=== PATIENT | female | born 1960 | race Caucasian/White ===

== ENCOUNTER 2017-08-18 05:40 | Observation (INO) | payer OTHER ==
[~2017-08-18] VITALS: Ht 167.6 cm; Wt 110.5 kg
[~2017-08-18 05:40] MED LIST: FERR325T18 PO; FOLI1TAB6 PO; MEDR10TA7 PO; METH2.5T PO; TRICCAP PO
[2017-08-18] MEDS ORDERED: HEPARIN SODIUM - SQ 10,000 UNITS/ML VIAL SQ PRN (06:00)
[2017-08-18] MEDS ORDERED: CHLORHEXIDINE GLUCONATE 2 % 1 PACK (2 CLOTHS) TOPICAL PRN (06:15)
[2017-08-18] MEDS ORDERED: SODIUM CHLORID 0.9% 500 ML IV PRN (06:15)
[2017-08-18] MEDS ORDERED: METOPROLOL TARTRATE 25 MG TAB PO PRN (06:15)
[2017-08-18] MEDS ORDERED: LACTATED RINGER'S 1000 ML IV PRN (06:15)
[2017-08-18] MEDS ORDERED: POVIDONE IODINE 5% (ANTISEPSIS KIT) 4 APPLICATIONS EACH NARE PRN (06:15)
[2017-08-18] MEDS ORDERED: SODIUM CHLORIDE FLUSH PRN IV FLUSH (06:15)
[2017-08-18] MEDS ORDERED: MULTTAB67 PO (06:34)
[2017-08-18] MEDS: ceFAZolin 2 GM/DEX PREMIX 50 ML IV SCH ×2 (07:02→08:00)
[2017-08-18] MEDS ORDERED: ACETAMINOPHEN 1000 MG/100 ML 100 ML IV ONE (07:07)
[2017-08-18] MEDS ORDERED: LIDOCAINE 1%/EPINEPHrine 1:100,000 SOLN 30 ML VIAL ONE (07:12)
[2017-08-18] MEDS: SODIUM CHLORIDE FLUSH BID IV FLUSH SCH ×2 (09:00→20:30)
[2017-08-18] MEDS ORDERED: ceFAZolin INJ 1,000 MG VIAL IV ONE (10:14)
[2017-08-18] MEDS ORDERED: VECURONIUM BROMIDE 20 MG VIAL IV ONE (10:14)
[2017-08-18] MEDS ORDERED: ONDANSETRON HCL 4 MG/2 ML VIAL IV ONE (10:14)
[2017-08-18] MEDS ORDERED: DEXAMETHASONE SOD PHOS 4 MG/ML VIAL IV ONE (10:14)
[2017-08-18] MEDS ORDERED: LIDOCAINE HCL 1% PF 5 ML SYRINGE OTHER ONE (10:14)
[2017-08-18] MEDS ORDERED: ROCURONIUM INJ 50 MG/5 ML SYRINGE IV PUSH ONE (10:14)
[2017-08-18] MEDS ORDERED: PROPOFOL 200 MG/20 ML AMP IV ONE (10:14)
[2017-08-18] MEDS ORDERED: LIDOCAINE 1%/EPINEPHrine 1:100,000 SOLN 50 ML VIAL INFIL ONE (10:16)
[2017-08-18] MEDS ORDERED: SUGAMMADEX SODIUM 200 MG/2 ML VIAL IV PUSH ONE (10:33)
[2017-08-18] MEDS ORDERED: oxyCODONE/ACETAMINOPHEN 5 MG/325 MG TAB PO PRN ×2 (12:00)
[2017-08-18] MEDS ORDERED: SODIUM CHLORIDE 0.9% FLUSH 10 ML FLUSH IV FLUSH PRN (12:00)
[2017-08-18] MEDS ORDERED: LORazepam 0.5 MG TAB PO PRN (12:00)
[2017-08-18] MEDS ORDERED: diphenhydrAMINE HCL 25 MG CAP PO PRN (12:00)
[2017-08-18] MEDS ORDERED: ONDANSETRON HCL 4 MG/2 ML VIAL IVP PRN (12:00)
[2017-08-18] MEDS ORDERED: DO NOT ADM ANY ANTICOAGULANT DRUGS PRN (12:11)
[2017-08-18] MEDS ORDERED: MIDAZOLAM HCL 2 MG/2 ML VIAL ONE (12:22)
[2017-08-18] MEDS ORDERED: MORPHINE SULFATE 4 MG/ML INJ ONE (12:22)
[2017-08-18] MEDS: KETOROLAC TROMETHAMINE 30 MG/ML (IVP) VIAL IVP SCH ×2 (12:52→20:30)
[2017-08-18] MEDS: D5-1/2 NS + KCL 20 MEQ INJ 1,000 ML IV SCH ×2 (12:52→23:11)
--- NOTE | 2017-08-18 15:23 | PD.ONC.PN ---
Subjective Subjective Remarks Post-op Patient is seen in PACU she has no complaints pain controlled awaiting bed placement drinking clear fluids Objective Data Date Time Temp Pulse Resp B/P (MAP) Pulse Ox O2 Delivery O2 Flow Rate FiO2 08/18/17 12:12 97.7 95 18 147/77 (100) 99 Nasal Cannula 2 08/18/17 06:15 98.3 96 16 131/74 (93) 96 08/18/17 08/18/17 08/18/17 07:00 15:00 23:00 Intake Total 2500 ml Output Total 500 ml Balance 2000 ml Administered Medications Medications (Trade) Dose Ordered Sig/Cherri Route PRN Reason Start Time Stop Time Status Last Admin Dose Admin Heparin Sodium (Porcine) (Heparin Inj) 5,000 units LEAD MINER PRN SQ PRE-OP LEAD MINER TO OR 08/18/17 06:00 08/18/17 22:00 08/18/17 06:21 Cefazolin Sodium/ Dextrose 50 ml @ 100 mls/hr LEAD MINER IV 08/18/17 06:15 08/21/17 06:14 08/18/17 08:00 Lactated Ringer's 1,000 ml @ 30 mls/hr Q24H PRN IV SEE LABEL COMMENTS 08/18/17 06:15 08/21/17 06:14 08/18/17 06:15 Povidone Iodine (Betadine 5% Antisepsis Kit) 1 applic LEAD MINER PRN EACH NARE SEE LABEL COMMENTS 08/18/17 06:15 08/21/17 06:14 08/18/17 06:30 Chlorhexidine Gluconate (Chlorhexidine 2% Cloth) 3 pack LEAD MINER PRN TOPICAL SEE LABEL COMMENTS 08/18/17 06:15 08/21/17 06:14 08/18/17 06:00 Potassium Chloride/Dextrose/ Sod Cl 1,000 ml @ 100 mls/hr Q10H IV 08/18/17 13:00 08/18/17 12:52 Ketorolac Tromethamine (Toradol Inj) 30 mg Q6H IVP 08/18/17 13:00 08/19/17 07:01 08/18/17 12:52 Objective Remarks GENERAL: Well-nourished, well-developed patient. SKIN: Warm and dry. HEAD: Normocephalic. EYES: No scleral icterus. No injection or drainage. CARDIOVASCULAR: Regular rate and rhythm without murmurs. RESPIRATORY: Breath sounds equal bilaterally. No accessory muscle use. GASTROINTESTINAL: Abdomen soft, SS are c/d/i EXTREMITIES:teds and scds MUSCULOSKELETAL: Adequate muscle tone. PSYCHIATRIC: Appropriate mood and affect; insight and judgment normal. Assessment/Plan Problem List: (1) Post-operative state ICD Codes: Z98.890 - Other specified postprocedural states Status: Acute Plan: s/p RA lap hyst with BSO post op orders in chart david to be removed in the morning ADAT OOB to chair Percocet and Toradol for pain IS to bedside anticipate discharge in next 24 hours Karuna Cason Aug 18, 2017 15:23
[2017-08-18] MEDS ORDERED: *ONDANSETRON 4 MG VIAL PERIprocedural Use ONLY ONE (17:58)
[2017-08-18 19:00] VITALS: BP 159/76; PULSE 75; TEMP 98.2; O2SAT 95
[2017-08-18 19:03] VITALS: BP 146/70; PULSE 73; RESP 16; O2SAT 97
[2017-08-18] MEDS ORDERED: SODIUM CHLORIDE 0.9% FLUSH 10 ML FLUSH IV FLUSH SCH (21:00)
[2017-08-19] VITALS: BP 140/77; PULSE 80; TEMP 98.1; O2SAT 97
[2017-08-19] MEDS: KETOROLAC TROMETHAMINE 30 MG/ML (IVP) VIAL IVP SCH ×2 (02:15→06:21)
[2017-08-19 05:06] LABS: AUTOMATED NEUTROPHIL # 9.5 TH/MM3 (1.8-7.7); BASOPHIL # 0.1 TH/MM3 (0-0.2); BASOPHIL % 0.4 % (0.0-2.0); EOSINOPHIL % 0.2 % (0.0-4.0); HEMATOCRIT 36.2 % (35.0-46.0); HEMOGLOBIN 11.8 GM/DL (11.6-15.3); LYMPH % 9.8 % (9.0-44.0); LYMPHOCYTE # 1.2 TH/MM3 (1.0-4.8); MEAN CELL VOLUME 84.2 FL (80.0-100.0); MEAN CORPUSCULAR HEMOGLOBIN 27.4 PG (27.0-34.0); MEAN CORPUSCULAR HGB CONC 32.5 % (32.0-36.0); MEAN PLATELET VOLUME 9.9 FL (7.0-11.0); MONO % 9.9 % (0.0-8.0); MONOCYTE # 1.2 TH/MM3 (0-0.9); NEUT % 79.7 % (16.0-70.0); PLATELET COUNT 338 TH/MM3 (150-450); RED CELL DISTRIBUTION WIDTH 16.3 % (11.6-17.2); WHITE BLOOD COUNT 11.9 TH/MM3 (4.0-11.0)
[2017-08-19 05:18] VITALS: BP 138/73; PULSE 76; TEMP 97.8; O2SAT 96
[2017-08-19 05:29] LABS: BICARBONATE 25.7 MEQ/L (21.0-32.0); CREATININE 0.75 MG/DL (0.50-1.00)
[2017-08-19 07:00] VITALS: BP 143/72; PULSE 75; PULSE 83; RESP 17; TEMP 98.2; O2SAT 96
[2017-08-19] MEDS ORDERED: OXYC1TAB63 PO (07:11)
--- NOTE | 2017-08-19 07:30 | MD ---
cc: Tere Morin MD, Carhine MD DATE OF DISCHARGE: PROCEDURE: Robotic-assisted laparoscopic hysterectomy, bilateral salpingo-oophorectomy, bilateral pelvic lymphadenectomy. DIAGNOSES: Endometrial cancer, enlarged uterus, postmenopausal bleeding. COURSE IN HOSPITAL: She did well in early postop period. She was hemodynamically stable, tolerating oral intake. Ins and outs 4781/2575. Labs this morning show an H and H of 11.8 and 36.2. Electrolytes: BUN and creatinine 8.75. PHYSICAL EXAMINATION: VITAL SIGNS: Afebrile, pulse 73-87, respirations 16-18, blood pressure 138-159/70-84, O2 saturations greater than or equal to 96%. GENERAL: Alert and oriented x 3. LUNGS: Clear. Mild basilar rales. CARDIOVASCULAR: Regular rate and rhythm. ABDOMEN: Clean and dry. Incisions without bleeding or discharge. Nontender. GYNECOLOGIC: No active bleeding. EXTREMITIES: Nontender. ASSESSMENT: Postoperative day #1, doing well in early postoperative period. Findings, preliminary pathology, steps taken at surgery discussed. Activities, restrictions are reviewed. Questions were asked and answered. She expressed good understanding. PLAN: Anticipate she will meet criteria for discharge to home today. She is to contact our office to ensure she has a followup scheduled in approximately 2 weeks. She will have a prescription for Percocet for pain. She is to resume her prior medications, but she is instructed that it is okay to put on hold her Provera and her iron supplements and she can take [id number] pain medication as needed if she does not need the Percocet. Our office number is again made available. She is to call our office should she have any questions or problems between now and the time of scheduled followup. MD CLAIR Paulson/PENNY , 07:15 AM , 07:29 AM
[2017-08-19 08:00] VITALS: PULSE 93
[2017-08-19] MEDS: SODIUM CHLORIDE FLUSH BID IV FLUSH SCH (08:32)
[2017-08-19] MEDS: D5-1/2 NS + KCL 20 MEQ INJ 1,000 ML IV SCH (08:32)
[2017-08-19 09:00] VITALS: PULSE 78
--- NOTE | 2017-08-19 09:36 | MP ---
cc: Tere Morin MD, Carhine MD DATE OF OPERATION: 08/18/2017 PREOPERATIVE DIAGNOSE: 1. Endometrial cancer. 2. Enlarged uterus. 3. Postmenopausal bleeding. POSTOPERATIVE DIAGNOSES: 1. Endometrial cancer. 2. Enlarged uterus. 3. Postmenopausal bleeding. 4. Bilateral enlarged pelvic lymph nodes. PROCEDURE: Robotic-assisted laparoscopic hysterectomy, bilateral salpingo-oophorectomy, bilateral pelvic lymphadenectomy. SURGEON: Tere Morin MD. 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 ANESTHESIA: General endotracheal anesthesia. ESTIMATED BLOOD LOSS: 300 mL. IV FLUIDS: 2500 mL. URINE OUTPUT: 200 mL. HISTORY: This is a 56-year-old female with postmenopausal bleeding. Biopsy showed grade 1 endometrial cancer. Imaging showed an enlarged multilobulated uterus including what appeared to be a fairly significant tumor. It radiographically suggested deep myometrial invasion and cervical extension. Whereas there was no overt evidence of metastatic disease on CAT scan, in reality at the time of surgery, she had multiple abnormal appearing enlarged lymph nodes on both sides of the pelvis. There were no appreciably detectable enlarged lymph nodes in the periaortic or paracaval region. In the peritoneal cavity, there were no peritoneal implants. The liver, diaphragm edges were smooth. The omentum, large, small bowel and adjacent mesentery appeared normal without implants. There were not significant adhesions. The uterus was prominent and sounded to 12 cm, had a couple of right fundal leiomyomas and an anterior lower uterine segment leiomyoma diffusely enlarged suggestive of adenomyosis. On frozen section, it was difficult to delineate invasive tumor from adenomyosis with final pathology pending. STATEMENT OF COMPLEXITY/MODIFIER: The complexity of this case was increased due to the diffusely enlarged multilobulated nature of the uterus, size of the uterus and a body habitus of 106 kilograms. Modifier should be applied accordingly. PROCEDURE: She was taken to the operating room and placed in dorsal lithotomy position, after general endotracheal anesthesia was administered. Time-out was undertaken. She was identified by site recognition and hospital ID bracelet and the proposed procedure was reviewed and confirmed. She was carefully positioned in padded Lisandro stirrups. Her arms were padded and secured to her sides. She was further secured to the bed with egg crate padding and tape in a cross chest over the shoulder fashion. All sites noted to be properly aligned with no malalignments or pressure points. She was prepped and draped in a sterile fashion, placed in the lithotomy position. The cervix grasped, uterine cavity sounded. A large VCare manipulator inserted and secured in the usual fashion. Huddleston catheter placed in the bladder. She was returned to the low lithotomy position, a change sterile gloves was undertaken. We completed draping in anticipation of laparoscopy. We confirmed that an orogastric tube was in the stomach on suction with manual elevation of the abdominal wall. A 5 mm cannula was introduced into the peritoneal cavity under direct laparoscopic visualization and an atraumatic entry was confirmed. Carbon dioxide gas was insufflated. An 8 mm cannula placed in the right upper quadrant and the anatomy was surveyed to determine if it was felt this could be accomplished laparoscopically. It was felt that it may be able to be accomplished laparoscopically so a 12 mm cannula placed in the midline above the umbilicus, an 8 mm cannula placed in the left upper quadrant. The original 5 mm exchanged for an 8 mm cannula. She was placed in steep Trendelenburg position. Peritoneal washings were obtained for cytology. The anatomy was surveyed with findings as described above. The small bowel was folded back on its mesenteric root. Three Ray-Mary sponges were placed around the root of the small bowel mesentery. The robotic system was brought into the operative field and attached in the usual fashion. Monopolar scissors, fenestrated bipolar forceps and ProGrasp manipulators were placed in arms 1, 2 and 3 respectively and I took my place at the surgeon's console. The right round ligament was cauterized and transected. The anterior and posterior leafs of the broad ligament were opened. The right ureter was identified. The right infundibulopelvic ligament was isolated. The intervening peritoneum was opened and the infundibulopelvic ligament was isolated to the level of the pelvic brim where it was cauterized and transected. The posterior peritoneum opened along the right side of the uterus and cervix and the right vesicouterine peritoneum was dissected off the lower uterine segment as the right uterine vessels were skeletonized and the right uterine vessels were cauterized. Attention was directed toward the left side where the left round ligament was isolated, cauterized, and transected. The anterior and posterior leafs of the broad ligament were opened. The left ureter was identified. The left infundibulopelvic ligament was isolated. The intervening peritoneum was opened. The infundibulopelvic ligament was isolated to the level of the pelvic brim. It was cauterized and transected. The posterior peritoneum opened along the left side of the uterus and cervix. The left vesicouterine peritoneum was dissected off the lower uterine segment and cervix. The left uterine vessels were skeletonized and cauterized. The uterus was inspected and noted to be blanched as all the major blood supply had been removed. Considered myomectomies to help reduce the size of the specimen prior to transvaginal delivery; however, it was felt that the leiomyomas may extend toward the endometrial cavity and preoperative imaging suggested a large tumor with deep invasion and so myomectomies were not performed to ensure that there was no disruption or entry into the endometrial cavity. The uterine vessels were transected bilaterally as the cardinal, paracervical, and uterosacral ligaments were isolated, cauterized and transected bilaterally, thereby freeing the attachments to the cervix on both sides. There were obviously enlarged lymph nodes that were visible and palpable, so a right lymph node dissection was initiated. The paravesical and obturator spaces, pararectal spaces were developed on the right side and each of the enlarged lymph nodes were isolated, dissected free with bipolar cautery and sharp dissection with the normal lymphatics left in situ in an effort to try and minimize morbidity associated from overly aggressive dissection, but each abnormal lymph nodes were removed and placed in a Ray-Mary sponge in the right pericolic gutter. No remaining visible or palpably abnormal lymph nodes persisted. Attention was directed toward the left side were similarly the perivesical, perirectal and obturator spaces were developed. Abnormal enlarged lymph nodes were again identified, each were isolated, bipolar cautery and sharp dissection, each were removed. Further dissection and inspection revealed no remaining detectable lymph nodes and these lymph nodes were placed on a separate Ray-Mary sponge in the pericolic gutter. Visual inspection and palpation getting confirmed that any abnormal lymphatics had been resected using the bifurcation of the iliacs as a proximal border, the circumflex iliac distally, the superior vesicle artery medially and the obturator nerve as the posterior aspects of the dissection. Now circumferential colpotomy was performed the cervix from the upper vagina. I left the surgeon console to help deliver the specimen transvaginally. Tenaculum were used on the cervix for countertraction. The cavity was curetted with some exophytic tumor removed and with countertraction repositioning, the specimen was able to be removed transvaginally which included uterus, cervix, tubes and ovaries. A pneumo-occluder balloon was placed in the vagina to maintain pneumoperitoneum. I returned to the surgeon's console. Transvaginally, an Endo Catch bag was used to first capture the left pelvic lymph nodes which were removed transvaginally and a separate Endo Catch bag captured the right pelvic lymph nodes which were removed transvaginally. Next, each of the 3 Ray-Mary sponges were removed. Blood in the pelvis was blotted and each Ray-Mary were removed individually, inspected and noted to be removed in their entirety. Counts were correct and there were no remaining foreign objects in the peritoneal cavity. Instruments 1 and 3 exchanged for needle drivers. A 0 Vicryl suture was introduced. The vaginal cuff was closed starting at the left corner full thickness closure including the posterior peritoneum and edge of the uterosacral ligament tied via instrument tie. Suture was held on countertraction as a running continuous full thickness closure was carried across the vaginal cuff to the contralateral corner where it was similarly secured, fixed and tied. The needle was cut and removed. The integrity of the bladder was confirmed by filling the bladder with saline dyed with methylene blue. There were no areas of blue. No extravasation of dye. Good margin between the bladder edge and the vaginal cuff suture line. Some perivesical fat had and a small area of approximately 1 cm was reapproximated with interrupted [id number] 2-0 Vicryl sutures tied and the instrument tied. The needle was cut and removed. The bladder was drained. The neurovascular structures were inspected and intact. Ureters with good peristalsis bilaterally. Good hemostasis. The pelvis was thoroughly irrigated. Hemostatic Surgicel powder was placed across the vaginal cuff and pelvic sidewall dissection areas. It is felt that all reasonable surgical objectives, as agreed upon, were completed. Therefore, the robotic instruments were removed. The robotic system was disengaged from the operative field. I reentered the bedside under a sterile condition The 12 mm fascial defect was closed with interrupted 0 Vicryl sutures using a fascial closure needle pass apparatus tied securely. The fascia was completely airtight and hemostatic. The remaining cannulas were withdrawn. Carbon dioxide gas was removed from the peritoneal cavity. 3-0 Vicryl, subcutaneous, 3-0 Vicryl subcuticular and Steri-Strips were used to close these incisions. She was returned to dorsal lithotomy position. Pelvic exam confirmed, the vaginal cuff to be well well-supported and hemostatic. There were no vaginal lacerations. No remaining foreign objects in the vagina. Preliminary and final counts were correct. Superficial mucosal irritation at the introitus was rendered hemostatic with topical silver nitrate. She was returned to dorsal supine position and was pending reversal of anesthesia and I left the operating room to precede her to the post-anesthesia care unit. Tere Morin MD KLM/DL , 08:49 AM , 09:35 AM
== END 2017-08-19 10:15 | disposition home or self-care (01) ==
LOC: HSDC 05:40 → HSDI 12:03 → HCPC 18:14
PROVIDERS: ADMIT Obstetrics & Gynecology Gynecologic Oncology; ATTEND Obstetrics & Gynecology Gynecologic Oncology
DX: C54.1 Malignant neoplasm of endometrium (principal); N95.0 Postmenopausal bleeding; D25.9 Leiomyoma of uterus, unspecified; R59.0 Localized enlarged lymph nodes; E66.9 Obesity, unspecified
CPT/HCPCS: 00840; 58573; 80048; 85025; 86850; 86900; 86901; 86920; 88112; 88307; 88309; 88331; 94150; 96361; 96374; 96376; G0378; J0131; J0690; J1100; J1644; J1885; J2250; J2270; J2405; J3010; J3480; J7120; S2900; 88305